=== PATIENT | female | born 1980 | race Caucasian/White ===

== ENCOUNTER 2017-12-28 17:42 | Emergency (ER) | payer SELFPAY ==
[2017-12-28 18:26] VITALS: BP 153/87
--- NOTE | 2017-12-28 18:56 | UC ---
Back Pain HPI - HPI Summary HPI Summary: This is 37 yo obese female who presents with c/o back pain. She was bending over to pick something up and she had sudden onset back pain. She has taken NSAIDs and tried light stretching exercises in the pool without any improvement over the last 2 days. Some radiation down the R leg. No loss of bowel or bladder control. She has had similar episodes of acute back pain in the past that has resolved with Medrol dose paks and rn progressive care unit. - History of Current Complaint Hx Last Menstrual Period: t-21 Pain Intensity: 8 <Rafael Lockett - Last Filed: 12/28/17 19:01> <Genesis Salas - Last Filed: 12/28/17 19:19> - History of Current Complaint Chief Complaint: UCBackPain Stated Complaint: BACK INJURY - Allergies/Home Medications Allergies/Adverse Reactions: Allergies Allergy/AdvReac Type Severity Reaction Status Date / Time latex Allergy Swelling Verified 12/28/17 18:26 Home Medications: Home Medications Biotin 1 mg PO 12/28/17 [History] Citalopram TAB* [Celexa TAB*] 10 mg PO DAILY 12/28/17 [History Confirmed ] Cyanocobalamin TAB* [Vitamin B12 TAB*] 500 mcg PO DAILY 12/28/17 [History Confirmed 12/28/17] PMH/Surg Hx/FS Hx/Imm Hx Previously Healthy: Yes - Surgical History Surgical History: None - Family History Known Family History: Positive: None - Social History Alcohol Use: Rare Substance Use Type: None Smoking Status (MU): Heavy Every Day Tobacco Smoker Type: Cigarettes Amount Used/How Often: 1/2 PPD <Rafael Lockett - Last Filed: 12/28/17 19:01> Review of Systems Constitutional: Negative Skin: Negative Eyes: Negative ENT: Negative Respiratory: Negative Cardiovascular: Negative Gastrointestinal: Negative Genitourinary: Negative Motor: Negative Neurovascular: Negative Musculoskeletal: Arthralgia, Myalgia Neurological: Negative Psychological: Negative Is Patient Immunocompromised?: No All Other Systems Reviewed And Are Negative: Yes <Rafael Lockett - Last Filed: 12/28/17 19:01> Physical Exam Triage Information Reviewed: Yes Appearance: Well-Appearing Vital Signs: Initial Vital Signs Temp 97.9 F 12/28/17 18:13 Pulse 100 12/28/17 18:13 Resp 18 12/28/17 18:13 BP 153/87 12/28/17 18:13 Pulse Ox 98 12/28/17 18:13 Vital Signs Reviewed: Yes ENT Exam: Normal Neck exam: Normal Respiratory Exam: Normal Cardiovascular Exam: Normal Abdominal Exam: Normal Musculoskeletal: Positive: ROM Limited @ - lumbar spine Neurological Exam: Normal Neurological: Positive: Alert, Muscle Tone Normal Psychological Exam: Normal Skin Exam: Normal <Rafael Lockett - Last Filed: 12/28/17 19:01> Vital Signs: Initial Vital Signs Temp 97.9 F 12/28/17 18:13 Pulse 100 12/28/17 18:13 Resp 18 12/28/17 18:13 BP 153/87 12/28/17 18:13 Pulse Ox 98 12/28/17 18:13 <Genesis Salas - Last Filed: 12/28/17 19:19> Back Pain Course/Dx - Course Course Of Treatment: Obese 37 yo female with acute back pain. Nl neurologic exam. Start medrol dose alka and muscle relaxants - Differential Dx/Diagnosis Differential Diagnosis/HQI/PQRI: Herniated Disc, Strain, Sprain Provider Diagnoses: 1. Lumbar strain <Rafael Lockett - Last Filed: 12/28/17 19:01> Discharge - Sign-Out/Discharge Documenting (check all that apply): Discharge - Billing Disposition and Condition Condition: STABLE Disposition: HOME <Rafael Lockett - Last Filed: 12/28/17 19:01> - Billing Disposition and Condition Condition: STABLE Disposition: HOME <Genesis Salas - Last Filed: 12/28/17 19:19> - Discharge Plan Condition: Stable Disposition: HOME Prescriptions: Cyclobenzaprine TAB* [Flexeril 10 MG TAB*] 10 mg PO TID PRN #30 tab PRN Reason: pain/spasm methylPREDNISolone [Medrol] 4 mg PO SEE INSTRUCTIONS #1 alka Patient Education Materials: Back Pain (ED), Core Strengthening Exercises (GEN) Forms: *Work Release Referrals: Kathie Frey MD [Primary Care Provider] - Additional Instructions: Instructions: 1. Continue light stretch/strengthening 2. Take steroids and muscle relaxants as directed Attestation Statement User Type: Provider - I was available for consult. This patient was seen by the JOSE. The patient was not presented to, seen by, or examined by me. -Bandar <Genesis Salas - Last Filed: 12/28/17 19:19>
== END 2017-12-28 19:00 | disposition home or self-care (01) ==
LOC: UCEAST 17:42
DX: S39.012A Strain of muscle, fascia and tendon of lower back, initial encounter (principal); X50.1XXA Overexertion from prolonged static or awkward postures, initial encounter; Y93.9 Activity, unspecified; Y92.9 Unspecified place or not applicable; Z91.040 Latex allergy status; F17.210 Nicotine dependence, cigarettes, uncomplicated
CPT/HCPCS: 99212; G0463

== ENCOUNTER 2018-01-03 14:58 | Emergency (ER) | payer SELFPAY ==
[2018-01-03 15:12] VITALS: BP 156/86
--- NOTE | 2018-01-03 15:34 | UC ---
Back Pain HPI - HPI Summary HPI Summary: 37 y/o obese female presents to the urgent care c/o lower back pain s/p picking up something at work about 10 days ago. Pt reports she was seen here at the clinic on 12/28/2017 and Dx w/ back strain and Rx Medrol dose alka and flexeril PO. She has been taking the medication and has done swimming to relief back spasm. However pain is persistent specially w/ bending and standing up. Pain is intermittent, sharp 7/10 and radiating to her RT lower leg. Pt has not taking anything today for pain. She thinks she needs more Prednisone PO. LMP: 12/31/2017. Pt denies saddle anesthesia, urinary or fecal incontinence, numbness and tingling over the lower extremities, urinary symptoms, SOB, chest pain, abdominal pain, N/V/D. Pt is suppose to return to work today, and request a work note. - History of Current Complaint Chief Complaint: UCBackPain Stated Complaint: BACK PAIN Time Seen by Provider: 01/03/18 15:19 Hx Obtained From: Patient Hx Last Menstrual Period: 12/29/2017 ?: No Onset/Duration: Gradual Onset, Lasting Days - 10 days, Worse Since - 2 days Timing: Lasting Days Severity Initially: Moderate Severity Currently: Moderate Pain Intensity: 7 Pain Scale Used: 0-10 Numeric Back Pain: Is Discrete @ - lower back, Radiates To - the RT side and RT hip Character: Sharp, Spasmodic Aggravating Factor(s): Movement, Lifting, Bending Alleviating Factor(s): Rest, OTC Meds Associated Signs And Symptoms: Positive: Negative. Negative: Numbness, Tingling , Abdominal Pain, Flank Pain, Bladder Incontinence, Bowel Incontinence, Weight Loss, Pain with Weight Bearing - Risk Factors AAA Risk Factors: Negative TAD Risk Factors: Negative Cauda Equina Risk Factors: Negative Epidural Abscess Risk Factors: Negative - Allergies/Home Medications Allergies/Adverse Reactions: Allergies Allergy/AdvReac Type Severity Reaction Status Date / Time latex Allergy Swelling Verified 12/28/17 18:26 PMH/Surg Hx/FS Hx/Imm Hx Previously Healthy: Yes Other Endocrine History: Vitamin B-12 deficiency Psychological History: Anxiety, Depression - Surgical History Surgical History: None - Family History Known Family History: Positive: Cardiac Disease, Hypertension, Diabetes - Social History Occupation: Employed Full-time Lives: With Family Alcohol Use: Rare Substance Use Type: None Smoking Status (MU): Heavy Every Day Tobacco Smoker Type: Cigarettes Amount Used/How Often: 1/2 PPD Review of Systems Constitutional: Negative Skin: Negative Eyes: Negative ENT: Negative Respiratory: Negative Cardiovascular: Negative Gastrointestinal: Negative Genitourinary: Negative Motor: Negative Neurovascular: Negative Musculoskeletal: Decreased ROM - lower back, Other: - acute lower back pain Neurological: Negative Psychological: Negative Is Patient Immunocompromised?: No All Other Systems Reviewed And Are Negative: Yes Physical Exam - Summary Physical Exam Summary: Vital Signs Reviewed: Yes Appearance: Well-Appearing, Well-Nourished, obese female sitting in the examining table w/o any apparent distress. Eyes: Positive: Conjunctiva Clear - PERRLA, EOMI. ENT: Positive: Normal ENT inspection, Hearing grossly normal, Pharynx normal, TMs normal, Uvula midline Neck: Positive: Supple, Nontender, No Lymphadenopathy Respiratory: Positive: Chest non-tender, Lungs clear, Normal breath sounds, No respiratory distress Cardiovascular: Positive: RRR, No Murmur, Pulses Normal, Brisk Capillary Refill Abdomen Description: Positive: Nontender, No Organomegaly, Soft. Negative: CVA Tenderness (R), CVA Tenderness (L) Bowel Sounds: Positive: Present Musculoskeletal: Positive: Strength Intact, BACK: Patient walked into the urgent care room with symmetric ambulation, No signs of limping, antalgic, able to bear weight. No signs of trauma, No masses palpated. Point tenderness at the level of L5-S1,RT side paraspinal muscle tenderness w/ spasm at the same level. No CVAT, no flank ecchymosis . No sacroiliac notch tenderness, No saddle anesthesia.ROM: limited due to pain, Straight Leg Raise: negative. Patellar reflexes: brisk, symmetric Muscle strength lower extremities. Dorsiflexion/ plantar flexion of ankles. Heel/ toe walk. Lower extremities: Femoral, popliteal , posterior tibial, and dorsalis pedis pulses WNL. Pt refuse rectal exam Neurological: Positive: Alert, Muscle Tone Normal Psychological Exam: Normal Skin Exam: Normal Triage Information Reviewed: Yes Vital Signs: Initial Vital Signs Temp 97.9 F 01/03/18 15:05 Pulse 93 01/03/18 15:05 Resp 18 01/03/18 15:05 BP 156/86 01/03/18 15:05 Pulse Ox 98 01/03/18 15:05 Back Pain Course/Dx - Course Course Of Treatment: 37 y/o obese female presents to the urgent care c/o lower back pain s/p picking up something at work about 10 days ago. Pt reports she was seen here at the clinic on 12/28/2017 and Dx w/ back strain and Rx Medrol dose alka and flexeril PO. She has been taking the medication and has done swimming to relief back spasm. However pain is persistent specially w/ bending and standing up. Pain is intermittent, sharp 7/10 and radiating to her RT lower leg. Pt has not taking anything today for pain. She thinks she needs more Prednisone PO. LMP: 12/31/2017. Pt denies saddle anesthesia, urinary or fecal incontinence, numbness and tingling over the lower extremities, urinary symptoms , SOB, chest pain, abdominal pain, N/V/D. Pt is suppose to return to work today , and request a work note. Hx obtained. Pt w/ Point tenderness at the level of L5-S1,RT side paraspinal muscle tenderness w/ spasm at the same level. Lumbosacral X-ray ordered, Impression: No acute osseous injury observed. Ibprofen PO ordered at the clinic. Given by nurse. Pt tolerated well medication pain decrease. Pt Rx Ibuprofen PO, flexeril PO and Prednisone PO. Pt given a PT referral. Patient was instructed to the f/u wit orthopedic in 1 week if symptoms do not improve or worsen. Your BP is elevated today. please decrease salt in your diet, monitor BP and if it continues to be elevated please f/u with your PCP for further management. Patient is able to ambulate freely w/o aid or limp. Plan of care was discussed with the patient and patient understands and agrees. All questions were answered at patient satisfaction. Pt left clinic hemodynamically stable. - Differential Dx/Diagnosis Differential Diagnosis/HQI/PQRI: Arthritis, Compressive Cord Syndrome, Fracture , Herniated Disc, Strain, Sprain Provider Diagnoses: 1- Acute lower back pain. 2- Back spasm. 3- elevated BP w/ o Hx of HTN Discharge - Sign-Out/Discharge Documenting (check all that apply): Discharge/Admit/Transfer - D/C home - Discharge Plan Condition: Stable Disposition: HOME Prescriptions: Ibuprofen TAB* [Motrin TAB* 800 MG] 800 mg PO Q6H PRN #30 tab PRN Reason: Pain Methocarbamol TAB* [Robaxin 500 MG TAB*] 750 mg PO TID PRN #9 tab PRN Reason: Spasms - Back methylPREDNISolone [Medrol Dosepak 4 MG*] 4 mg PO SEE INSTRUCTIONS #1 alka Patient Education Materials: Acute Low Back Pain (ED), Low-Sodium Diet (ED), Muscle Spasm (ED) Forms: *Work Release Referrals: Daysi Cain MD [Medical Doctor] - 1 Week Kathie Frey MD [Primary Care Provider] - 1 Week Additional Instructions: 1- Please take Ibuprofen PO as directed after meals for pain. Take Medrol dose alka as directed to alleviate symptoms 2- Take Robaxin PO as directed for muscle spasm. Please do not drive while taking the medication. 3- Wear a back support. Avoid strenuous exercise of heavy lifting. 4- Please follow up with Orthopedic Dr or your PCP in 1 week if not improvement of symptoms, for further management. 5- Please f/u PT referral for further evaluation and treatment. 6-Your BP is elevated today. please decrease salt in your diet, monitor BP and if it continues to be elevated please f/u with your PCP for further management - Billing Disposition and Condition Condition: STABLE Disposition: HOME
[2018-01-03] MEDS ORDERED: Ibuprofen TAB* 400 MG PO ONE (15:37)
--- NOTE | 2018-01-03 16:00 | RAD ---
Indication: Low back pain. 5 views of lumbar spine demonstrate vertebral bodies to be normal in height. Spaces all well-preserved. Spinal canal appears to be intact. IMPRESSION: Unremarkable lumbosacral spine. Disc spaces all well-preserved.
== END 2018-01-03 16:30 | disposition home or self-care (01) ==
LOC: UCEAST 14:58
DX: M54.5 Low back pain (principal); Z91.040 Latex allergy status; F17.210 Nicotine dependence, cigarettes, uncomplicated
CPT/HCPCS: 72110; 99212; A9270-GY; G0463

== ENCOUNTER 2018-06-26 08:57 | Emergency (ER) | payer BC ==
[2018-06-26 09:12] VITALS: BP 151/82
[2018-06-26] MEDS ORDERED: Fluorescein Sodium TOPICAL* 1 MG TEST STRIP OPHTHALMIC ONE (09:28)
[2018-06-26] MEDS ORDERED: Tetracaine 0.5% OPTH.SOL 4 ML* 1 DROP BTL RIGHT EYE ONE (09:28)
--- NOTE | 2018-06-26 09:31 | UC ---
Eye Complaint HPI - HPI Summary HPI Summary: 37yo patientt gibson her grandson had pink eye. She thinks she had this eye discharge from him, but also states she used mascara and shortly after she had pain, redness and d/c from right eye after rubbing on it. Has been using tobramycin drops from PCP for 3 days, not working. Denies contact lense use. Denies hx of HTN - History of Current Complaint Chief Complaint: UCEye Stated Complaint: EYE ISSUE Time Seen by Provider: 06/26/18 09:06 Hx Obtained From: Patient Hx Last Menstrual Period: 06/02/18 ?: No Onset/Duration: Sudden Onset, Lasting Days Timing: Constant Severity Initially: Mild Severity Currently: Moderate Pain Intensity: 4 Location of Injury: Conjunctiva Character: Dull Aggravating Factor(s): Nothing Alleviating Factor(s): Nothing - Risk Factors Penetrating Injury Risk Factor: Negative Acute Glaucoma Risk Factors: Negative Optic Artery Occlusion Risk Factors: Negative - Allergies/Home Medications Allergies/Adverse Reactions: Allergies Allergy/AdvReac Type Severity Reaction Status Date / Time latex Allergy Swelling Verified 06/26/18 09:12 Home Medications: Home Medications Tobramycin 0.3% OPHTH.RJ* 1 ophth.soln 06/26/18 [History] PMH/Surg Hx/FS Hx/Imm Hx Psychological History: Anxiety, Depression - Surgical History Surgical History: Yes Surgery Procedure, Year, and Place: tubes in her ears as a child - Family History Known Family History: Positive: None, Cardiac Disease, Hypertension, Diabetes - Social History Alcohol Use: Rare Substance Use Type: None Smoking Status (MU): Heavy Every Day Tobacco Smoker Type: Cigarettes Amount Used/How Often: 1/2 PPD Review of Systems Eyes: Drainage, Eye Redness All Other Systems Reviewed And Are Negative: Yes Physical Exam - Summary Physical Exam Summary: conjunctival injection right eye, no fluorescein uptake , no FB found on eyelid eversion. ELIJAH BROOKS wnl Triage Information Reviewed: Yes Appearance: Well-Appearing, Obese Vital Signs: Initial Vital Signs Temp 97.8 F 06/26/18 09:09 Pulse 88 06/26/18 09:09 Resp 18 06/26/18 09:09 BP 151/82 06/26/18 09:09 Pulse Ox 100 06/26/18 09:09 Vital Signs Reviewed: Yes Eyes: Positive: Conjunctiva Inflamed, Discharge ENT: Positive: Hearing grossly normal, Pharynx normal Neck: Positive: Supple Respiratory: Positive: Chest non-tender Cardiovascular: Positive: Pulses Normal, Brisk Capillary Refill Abdomen Description: Positive: Nontender Eye Complaint Course/Dx - Course Course Of Treatment: redness and discharge on right eye after using eye mascara and exposure to pink eye, compatible with conjunctivitis, stop tobramycin and start cipro ophthalmic drops as prescribed, f/u with PCP. Denies history of HTN - Differential Dx/Diagnosis Provider Diagnoses: elevated BP without diagnosis of HTN. conjunctivitis Discharge - Sign-Out/Discharge Documenting (check all that apply): Patient Departure All imaging exams completed and their final reports reviewed: No Studies - Discharge Plan Condition: Stable Disposition: HOME Patient Education Materials: Conjunctivitis (ED), Ciprofloxacin (Into the eye) Referrals: Trino Thompson MECHANISM INSPECTOR [Primary Care Provider] - - Billing Disposition and Condition Condition: STABLE Disposition: Home
== END 2018-06-26 10:02 | disposition home or self-care (01) ==
LOC: UCEAST 08:57
DX: H10.9 Unspecified conjunctivitis (principal); R03.0 Elevated blood-pressure reading, without diagnosis of hypertension; F17.210 Nicotine dependence, cigarettes, uncomplicated; Z91.040 Latex allergy status; Z79.2 Long term (current) use of antibiotics
CPT/HCPCS: 99212; A9270-GY; G0463

== ENCOUNTER 2018-09-24 17:25 | Emergency (ER) | payer BC ==
[2018-09-24 17:55] VITALS: BP 130/61
--- NOTE | 2018-09-24 18:41 | UC ---
Back Pain HPI - HPI Summary HPI Summary: The patient is a 37-year-old female with low back pain 4-5 days. She states that she has spells like this about every 8 months to a year. Her pain is worse with twisting and bending. She denies any sciatica. She denies any bowel or bladder dysfunction. She has no history of cancer. He states that when she gets like this her primary care provider prescribes a Medrol Dosepak and this does the trick for her. - History of Current Complaint Chief Complaint: UCBackPain Stated Complaint: BACK PAIN Time Seen by Provider: 09/24/18 18:40 Hx Obtained From: Patient Hx Last Menstrual Period: 09/20/2018 Onset/Duration: Gradual Onset, Lasting Days Timing: Constant Severity Initially: Moderate Severity Currently: Severe Pain Intensity: 9 Pain Scale Used: 0-10 Numeric Back Pain: Is Diffuse Character: Aching, Throbbing, Spasmodic Aggravating Factor(s): Movement, Lifting, Bending Alleviating Factor(s): Nothing Associated Signs And Symptoms: Negative: Swelling, Redness, Bruising, Fever, Weakness, Numbness, Tingling, Abdominal Pain, Flank Pain, Bladder Incontinence, Bowel Incontinence, Weight Loss, Pain with Weight Bearing Full Body (No Head): 1 - pain L>R - Allergies/Home Medications Allergies/Adverse Reactions: Allergies Allergy/AdvReac Type Severity Reaction Status Date / Time latex Allergy Swelling Verified 06/26/18 09:12 Home Medications: Home Medications metFORMIN* [Glucophage 1000 MG TAB *] 1,000 mg 09/24/18 [History] PMH/Surg Hx/FS Hx/Imm Hx Previously Healthy: Yes Endocrine History: Diabetes - Surgical History Surgical History: Yes Surgery Procedure, Year, and Place: tubes in her ears as a child - Family History Known Family History: Positive: Cardiac Disease, Hypertension, Diabetes - Social History Alcohol Use: Rare Substance Use Type: None Smoking Status (MU): Heavy Every Day Tobacco Smoker Type: Cigarettes Amount Used/How Often: 1/2 PPD Review of Systems All Other Systems Reviewed And Are Negative: Yes Constitutional: Positive: Negative Skin: Positive: Negative Eyes: Positive: Negative ENT: Positive: Negative Respiratory: Positive: Negative Cardiovascular: Positive: Negative Gastrointestinal: Positive: Negative Genitourinary: Positive: Negative Motor: Positive: Negative Neurovascular: Positive: Negative Musculoskeletal: Positive: Myalgia Neurological: Positive: Negative Psychological: Positive: Negative Physical Exam Triage Information Reviewed: Yes Appearance: Well-Appearing, No Pain Distress, Well-Nourished, Other: - bmi 48 Vital Signs: Initial Vital Signs Temp 97.6 F 09/24/18 17:48 Pulse 75 09/24/18 17:48 Resp 16 09/24/18 17:48 BP 130/61 09/24/18 17:48 Pulse Ox 130 09/24/18 17:48 Vital Signs Reviewed: Yes Eyes: Positive: Conjunctiva Clear ENT: Positive: Hearing grossly normal. Negative: Nasal congestion, Nasal drainage, Trismus, Muffled voice, Hoarse voice Neck exam: Normal Neck: Positive: Supple, Nontender Respiratory: Positive: Lungs clear, Normal breath sounds, No respiratory distress, No accessory muscle use Cardiovascular: Positive: RRR, No Murmur Musculoskeletal: Positive: ROM Intact, No Edema, Other: - (-) SLR Neurological: Positive: Alert, Muscle Tone Normal Psychological Exam: Normal Skin Exam: Normal Back Pain Course/Dx - Differential Dx/Diagnosis Provider Diagnosis: Acute lumbar myofascial strain Discharge - Sign-Out/Discharge Documenting (check all that apply): Patient Departure All imaging exams completed and their final reports reviewed: No Studies - Discharge Plan Condition: Stable Disposition: HOME Prescriptions: methylPREDNISolone [Medrol Dosepak 4 MG*] 0 mg PO .SEE NONI INSTRUCTION #1 tab Patient Education Materials: Back Pain (ED) Forms: *Work Release Referrals: Trino Thompson NP [Primary Care Provider] - 5 Days (if not better) - Billing Disposition and Condition Condition: STABLE Disposition: Home
[2018-09-24] MEDS ORDERED: predniSONE TAB* 20 MG PO ONE (18:56)
== END 2018-09-24 19:00 | disposition home or self-care (01) ==
LOC: UCEAST 17:25
DX: S39.012A Strain of muscle, fascia and tendon of lower back, initial encounter (principal); X58.XXXA Exposure to other specified factors, initial encounter; Y92.9 Unspecified place or not applicable; E11.9 Type 2 diabetes mellitus without complications; Z79.84 Long term (current) use of oral hypoglycemic drugs; Z91.040 Latex allergy status; F17.210 Nicotine dependence, cigarettes, uncomplicated
CPT/HCPCS: 99212; G0463; J7512